=== PATIENT | female | born 1990 | race Caucasian/White ===

== ENCOUNTER 2020-09-30 21:53 | Emergency (ER) | payer MEDICAID ==
[~2020-09-30] VITALS: Ht 154.9 cm; Wt 53.7 kg
[2020-09-30 23:08] LABS: MICROSCOPIC INDICATED
--- NOTE | 2020-09-30 23:16 | NUR ---
"I FEEL LIKE I HAVE A KIDNEY INFECTION. I HAD A UTI AND I DIDN'T TAKE CARE OF IT. I HAVE FREQUENT URINATION AND IT ALEXANDRE REALLY BAD. I HAVE ABDOMINAL PAIN AND BACK PAIN". C/O BILAT FLANK PAIN. UTI SX X 1 WK. PAIN STARTED YESTERDAY.
[2020-09-30 23:17] LABS: BASOPHILS % (AUTO) 1 % (0-1); EOSINOPHILS % (AUTO) 3 % (1-7); LYMPHOCYTES % (AUTO) 17 % (22-44); MEAN CORPUSCULAR HEMOGLOBIN 35.1 pg (27.0-34.8); MEAN CORPUSCULAR HGB CONC 34.3 g/dL (32.4-35.8); MEAN PLATELET VOLUME 8.2 fL (7.4-10.4); MONOCYTES % (AUTO) 9 % (2-9); NEUTROPHILS % (AUTO) 70 % (42-75); PLATELET COUNT 382 x10^3/uL (130-400); RED BLOOD COUNT 4.05 x10^6/uL (3.82-5.3)
[2020-09-30 23:19] LABS: MD NO
[2020-09-30 23:24] LABS: ALANINE AMINOTRANSFERASE 23 U/L (12-78); ALBUMIN 4.2 g/dL (3.4-5.0); ANION GAP 3 mmol/L (5-15); CALCIUM 8.9 mg/dL (8.5-10.1); CHLORIDE 107 mmol/L (98-107); CREATININE 0.61 mg/dL (0.55-1.02)
[2020-09-30 23:29] LABS: ALKALINE PHOSPHATASE 68 U/L (45-117); BILIRUBIN,TOTAL 0.5 mg/dL (0.2-1.0); TOTAL PROTEIN 8.6 g/dL (6.4-8.2)
[2020-09-30] MEDS ORDERED: IBUPROFEN 600 MG TABLET ONE (23:49)
[2020-09-30] MEDS ORDERED: HYDROcodone/APAP 5/325 TABLET ONE (23:49)
[2020-09-30] MEDS ORDERED: ONDANSETRON ODT 4 MG ONE (23:49)
--- NOTE | 2020-09-30 23:50 | NUR ---
MEDICATED PER EMAR
[2020-10-01] MEDS ORDERED: NITROFURANTOIN (MACROBID) 100 MG CAPSULE PO ONE
[2020-10-01] MEDS ORDERED: ONDANSETRON ODT 4 MG PO ONE
[2020-10-01] MEDS ORDERED: HYDROcodone/APAP 5/325 TABLET PO ONE
[2020-10-01] MEDS ORDERED: IBUPROFEN 600 MG TABLET PO ONE
--- NOTE | 2020-10-01 00:20 | NUR ---
PAIN SLIGHTLY IMPROVED TO 2/10 DISCHARGED HOME IN CARE OF AFTER TEACH BACK SUCCESSFUL ON MEDICATION PLAN/UTI PREVENTION
[2020-10-01 00:21] VITALS: BP 140/79
== END 2020-10-01 00:23 | disposition home or self-care (01) ==
LOC: ED 10-01
DX: N30.00 Acute cystitis without hematuria (principal); R30.0 Dysuria
CPT/HCPCS: 36415; 76770; 80053; 81001; 84703; 85025; 87077; 87086; 87186; 87491; 87591; 99284; Q0162